=== PATIENT | male | born 1995 | race Caucasian/White ===

== ENCOUNTER 2019-10-02 17:52 | Emergency (ER) | payer BC ==
[2019-10-02] MEDS ORDERED: Tetan/Diph/Pertus SYR(Tdap)* 0.5 ML SYR(BOOSTRIX) use SYR contains LATEX IM ONE (18:23)
[2019-10-02] MEDS ORDERED: Ibuprofen TAB* 600 MG ONE (18:24)
[2019-10-02] MEDS ORDERED: Ketorolac INJ* 30 MG/ML 1 ML VIAL ONE (19:07)
== END 2019-10-02 18:21 | disposition home or self-care (01) ==
LOC: UCCORT 17:52
DX: T23.252A Burn of second degree of left palm, initial encounter (principal); T23.262A Burn of second degree of back of left hand, initial encounter; T23.232A Burn of second degree of multiple left fingers (nail), not including thumb, initial encounter; T23.201A Burn of second degree of right hand, unspecified site, initial encounter; T22.212A Burn of second degree of left forearm, initial encounter; T22.211A Burn of second degree of right forearm, initial encounter; T21.22XA Burn of second degree of abdominal wall, initial encounter; X12.XXXA Contact with other hot fluids, initial encounter; Y92.9 Unspecified place or not applicable; Z23 Encounter for immunization
CPT/HCPCS: 90471; 90715; 96372; 99203; A9270-GY; G0463; J1885